=== PATIENT | female | born 1985 | race Caucasian/White ===

== ENCOUNTER → 2018-04-24 | Outpatient (CLI) | payer SELFPAY ==
[2018-04-26 17:08] LABS: CHLAMYDIA TRACHOMATIS, NAA Positive (Negative); NEISSERIA GONORRHOEAE, NAA Negative (Negative)
== END | disposition home or self-care (01) ==
LOC: LAB EV 18:13 → LAB SHORT 18:13
PROVIDERS: Family Medicine
DX: N76.0 Acute vaginitis (principal)
CPT/HCPCS: 87491; 87591

== ENCOUNTER 2019-03-31 15:13 | Emergency (ER) | payer OTHER ==
[~2019-03-31] VITALS: Ht 165.1 cm; Wt 58.1 kg
[2019-03-31] MEDS ORDERED: IBUP600 PO (15:27)
[2019-03-31] MEDS ORDERED: CEPH500 PO (15:27)
== END 2019-03-31 15:50 | disposition home or self-care (01) ==
LOC: ER 15:13
DX: N61.0 Mastitis without abscess (principal)
CPT/HCPCS: 99282

== ENCOUNTER 2019-06-03 20:47 | Emergency (ER) | payer OTHER ==
[~2019-06-03] VITALS: Ht 165.1 cm; Wt 62.1 kg
[~2019-06-03 20:47] MED LIST: CEPH500 PO; IBUP600 PO
[2019-06-04] MEDS ORDERED: Esgic Tablet1 EACH PO (00:43)
== END 2019-06-04 01:19 | disposition home or self-care (01) ==
LOC: ER 20:47
DX: G43.509 Persistent migraine aura without cerebral infarction, not intractable, without status migrainosus (principal); Z91.013 Allergy to seafood
CPT/HCPCS: 70450; 96361; 96374; 96375; 99284-25; J0780; J1200; J1885; J7030

== ENCOUNTER → 2019-10-03 | Outpatient (CLI) | payer OTHER ==
[~2019-10-03] MED LIST changes: +Esgic Tablet1 EACH PO
[2019-10-07 16:06] LABS: HPV 16 Positive (Negative); HPV 18 Negative (Negative); HPV OTHER HR TYPES Positive (Negative)
== END | disposition home or self-care (01) ==
LOC: LAB SHORT 10:23 → LAB 10:23
PROVIDERS: Advanced Practice Midwife
DX: Z01.419 Encounter for gynecological examination (general) (routine) without abnormal findings (principal)
CPT/HCPCS: 87624; 87625; G0123

== ENCOUNTER → 2019-11-01 | Outpatient (CLI) | payer OTHER | END | disposition home or self-care (01) | LOC: LAB SHORT 13:43 → PLD 13:43 | DX: N87.0 Mild cervical dysplasia (principal) | CPT/HCPCS: 88305 ==

== ENCOUNTER → 2019-11-21 | Outpatient (CLI) | payer OTHER ==
[2019-11-24 04:06] LABS: CHLAMYDIA TRACHOMATIS, NAA Negative (Negative); NEISSERIA GONORRHOEAE, NAA Negative (Negative)
== END | disposition home or self-care (01) ==
LOC: LAB 09:29 → LAB SHORT 09:29
PROVIDERS: Advanced Practice Midwife
DX: Z11.3 Encounter for screening for infections with a predominantly sexual mode of transmission (principal)
CPT/HCPCS: 87491; 87591

== ENCOUNTER → 2020-06-16 | Outpatient (CLI) | payer OTHER | END | disposition home or self-care (01) | LOC: LAB EV 12:46 → LAB SHORT 12:46 | DX: N39.0 Urinary tract infection, site not specified (principal) | CPT/HCPCS: 87086 ==

== ENCOUNTER → 2021-06-21 | Outpatient (CLI) | payer OTHER ==
[2021-06-22 23:07] LABS: CHLAMYDIA TRACHOMATIS, NAA Negative (Negative)
== END ==
LOC: LAB SHORT 12:11 → LAB 12:11
PROVIDERS: Advanced Practice Midwife
DX: Z11.3 Encounter for screening for infections with a predominantly sexual mode of transmission (principal); Z91.013 Allergy to seafood
CPT/HCPCS: 87491; 87591